=== PATIENT | female | born 1950 | race African-American/Black ===

== ENCOUNTER 2020-08-01 15:29 | Emergency (ER) | payer SELFPAY ==
[~2020-08-01] VITALS: Ht 160 cm; Wt 79.5 kg
[2020-08-01 17:13] VITALS: BP 183/107
[2020-08-01] MEDS ORDERED: IPRATROPIUM BROMIDE 0.5 MG/2.5 ML NEBU. NEB ONE (17:30)
[2020-08-01] MEDS ORDERED: ALBUTEROL SULFATE 2.5 MG/3 ML NEBU. NEB ONE (17:30)
[2020-08-01] MEDS ORDERED: predniSONE 10 MG TABLET PO ONE (17:30)
[2020-08-01] MEDS ORDERED: ALBU2.5V5 NEB (18:35)
[2020-08-01] MEDS ORDERED: VENTOLIN HFA18 GM INH (18:35)
[2020-08-01] MEDS ORDERED: PRED50TA PO (18:35)
[2020-08-01] MEDS ORDERED: BUDE10.2 IH (18:35)
--- NOTE | 2020-08-01 18:35 | ED.ADGEN ---
Past Medical History Past Medical History: Asthma Past Surgical History: No Surgical History Smoking Status: Never Smoker Alcohol Use: None General Adult EDM: Chief Complaint: SHORTNESS OF BREATH HPI: HPI: Patient is a 70 year old -[place] female who presents emergency department with complaints of problems with her asthma for the last week. Patient states she has run out of her nebulizer solution and that she is also out of her Symbicort. Patient states she has been using her ProAir inhaler with little relief. She denies any fever, body aches, chills, headache, chest pain, palpitations, nausea, vomiting, diarrhea, abdominal pain, or rash. Patient reports she has completed both Cov[employer] immunizations. She completed the Gizmo5 series. She currently denies any pain. She only complains of shortness of breath and wheezing. Review of Systems: Review of Systems: Complete ROS is negative unless otherwise noted in HPI. Current Medications: Current Medications Medications (Trade) Dose Ordered Sig/Dusty Start Time Stop Time Status Last Admin Dose Admin Albuterol Sulfate (Ventolin Neb Soln) 2.5 mg 1X ONCE 08/01/20 17:30 08/01/20 17:31 DC 08/01/20 17:37 2.5 MG Ipratropium [place] (Atrovent) 0.5 mg 1X ONCE 08/01/20 17:30 08/01/20 17:31 DC 08/01/20 17:37 0.5 MG Prednisone (Prednisone) 50 mg 1X ONCE 08/01/20 17:30 08/01/20 17:31 DC 08/01/20 17:48 50 MG Allergies: Allergies: Allergies Coded Allergies Type Severity Reaction Last Updated Verified No Known Drug Allergies 08/01/20 No Physical Exam: PE: See Above Constitutional: Well developed, well nourished, no acute distress, non-toxic appearance. [] HENT: Normocephalic, atraumatic, bilateral external ears normal, nose normal. [] Eyes: PERRLA, EOMI, conjunctiva normal, no discharge. [] Neck: Normal range of motion, no stridor. [] Cardiovascular:Heart rate regular rhythm Lungs & Thorax: Respirations even, inspiratory and expiratory wheezes in all pulido, diminished in bilateral bases, speaking full sentences mild increased work of breathing, no retractions Skin: Warm, dry, no erythema, no rash. [] Extremities: No cyanosis, ROM intact, no edema. [] Neurologic: Alert and oriented X 3, normal motor, normal sensory, no focal deficits noted. [] Psychologic: Affect normal, judgement normal, mood normal. [] Current Patient Data: Vital Signs: Vital Signs Date Time Temp Pulse Resp B/P (MAP) Pulse Ox O2 Delivery O2 Flow Rate FiO2 08/01/20 17:39 98 Room Air 08/01/20 17:13 98.2 92 28 183/107 (132) 98.2 EKG: EKG: [] Heart Score: C/O Chest Pain: No Risk Scores: Score 0 - 3: 2.5% MACE over next 6 weeks - Discharge Home Score 4 - 6: 20.3% MACE over next 6 weeks - Admit for Clinical Observation Score 7 - 10: 72.7% MACE over next 6 weeks - Early Invasive Strategies Radiology/Procedures: Radiology/Procedures: [] Course & Med Decision Making: Course & Med Decision Making Pertinent Labs and Imaging studies reviewed. (See chart for details) Patient is a 70-year-old female presented emergency department with complaint of asthma problems for the last week and need for refills of her medications. Patient was given an Atrovent and an albuterol treatment in the emergency department she also received 50 mg of p.o. prednisone. Patient reported feeling better after these medications. We will fill the patient Symbicort, albuterol nebulizer solution, and albuterol inhaler. Patient was provided with a list of primary care doctors for further follow-up, prescription written for 50 mg of prednisone p.o. daily x6 days to begin taking tomorrow. Patient was encouraged to return to the ER if her symptoms worsened or fever develop. Patient verbalized an understanding of home care, medications, follow-up, and return to ED instructions and was in agreement with the plan of care. [] Dragon Disclaimer: Dragon Disclaimer: This electronic medical record was generated, in whole or in part, using a voice recognition dictation system. Departure Departure Impression: Primary Impression: Asthma exacerbation Additional Impression: Medication refill Disposition: HOME / SELF CARE / HOMELESS Condition: STABLE Referrals: NO PCP (PCP) Patient Instructions: Asthma Prevention-Brief, Asthma, Adult, [id number] Additional Instructions: Fill the prescription(s) and use as directed. Increase clear fluids. Avoid triggers such as smoke, fragrance, dust, and pollen. Follow-up with your primary care doctor if symptoms persist, return to the ER if symptoms worsen. . [facility] [address] [place] [address] [facility] [address] [place] [address] [facility] [address] [facility] [place] [address] [facility] [address] [place] [address] [facility] [address] [place] [address] [address] [place] [address] [address] [place] [address] [facility] [address] [place] [address] [facility] [address] [place] [address] [facility] [address] [place] [address] Scripts Budesonide/Formoterol Fumarate (SYMBICORT 160-4.5 MCG INHALER) 10.2 Gm Hfa.aer.ad 2 PUFF IH BID, #1 INHALER 1 Refill Prov: EFRAÍN HARP LEAD LAYING AND GLUING MACHINE OPERATOR 08/01/20 Prednisone (PREDNISONE) 50 Mg Tablet 1 TAB PO DAILY for 6 Days, #6 TAB 0 Refills start taking on 08/02/20 Prov: EFRAÍN HARP LEAD LAYING AND GLUING MACHINE OPERATOR 08/01/20 Albuterol Sulfate (ALBUTEROL SULFATE NEB SOLN) 2.5 Mg/3 Ml Vial.neb 1 VIAL NEB PRN Q4HRS PRN for WHEEZING for 30 Days, #50 VIAL 1 Refill Prov: EFRAÍN HARP LEAD LAYING AND GLUING MACHINE OPERATOR 08/01/20 Albuterol Sulfate (VENTOLIN HFA INHALER) 18 Gm Hfa.aer.ad 2 PUFF INH Q4HRS PRN for WHEEZING for 30 Days, #1 INHALER 1 Refill Prov: EFRAÍN HARP APRN 08/01/20 Attending Signature Attending Signature I have reviewed the PA/ECONOMIC ANALYST's note and plan of care. I was available for consultation as needed during the patient's visit in the emergency department. I agree with the clinical impression, plan, and disposition. Problem Qualifiers Primary Impression: Asthma exacerbation Asthma severity: mild Asthma persistence: unspecified Qualified Codes: J45.901 - Unspecified asthma with (acute) exacerbation EFRAÍN HARP APRN Aug 01, 2020 18:35 LUDIN MAJOR DO Aug 04, 2020 13:04
== END 2020-08-01 18:45 | disposition home or self-care (01) ==
LOC: ER 15:29
DX: J45.901 Unspecified asthma with (acute) exacerbation (principal); Z76.0 Encounter for issue of repeat prescription
CPT/HCPCS: 94640; 99284; J7512; J7613; J7644